=== PATIENT | male | born 1995 ===

== ENCOUNTER 2021-10-01 13:37 | Emergency (ER) | payer SELFPAY ==
[2021-10-01] MEDS ORDERED: Ketorolac Tromethamine 30 MG/ML VIAL ONE (15:39)
== END 2021-10-01 15:50 | disposition home or self-care (01) ==
LOC: ERS 13:37
DX: K04.7 Periapical abscess without sinus (principal); K02.9 Dental caries, unspecified
CPT/HCPCS: 96372; 99282; J1885